=== PATIENT | female | born 1955 | race Caucasian/White ===

== ENCOUNTER → 2019-01-14 | Outpatient (CLI) | payer BC | LOC: MC.RAD 13:38 | DX: Z12.31 Encounter for screening mammogram for malignant neoplasm of breast (principal) ==

== ENCOUNTER → 2020-01-16 | Outpatient (CLI) | payer SELFPAY | LOC: MC.RAD 10:25 | DX: Z12.31 Encounter for screening mammogram for malignant neoplasm of breast (principal) ==

== ENCOUNTER → 2021-02-15 | Outpatient (CLI) | payer SELFPAY | LOC: MC.RAD 01-18 10:45 | DX: Z12.31 Encounter for screening mammogram for malignant neoplasm of breast (principal) ==

== ENCOUNTER 2022-02-09 18:45 | Observation (INO) | payer MEDICARE, BC ==
[~2022-02-09] VITALS: Ht 170.2 cm; Wt 63.0 kg
[2022-02-09 23:15] VITALS: BP 127/67; PULSE 75; TEMP 98.3
--- NOTE | 2022-02-09 23:15 | NUR ---
PATIENT ADMITED INTO ROOM 349 VIA EMS FROM [facility] WITH A SBO. A&O. PATIENT HAS HX OF ROUN-EN-Y. ABD IS FLAT, SOFT AND WITH HYPO BOWL SOUNDS NOTED. NO C/O OF PAIN OR NAUSEA FOR APPROX 2 HOURS NOW. PATIENT STATES PAIN AND N/V IS MUCH BETTER. DID PASS VERY LITTLE FLATUS TODAY. BM YESTERDAY, AFTER GUMMY STOOL SOFTNER, WAS VERY SMALL AND HARD. IV FLUIDS MAINTAINED BY EMS INFUSING VIA PUMP INTO PERIPHERAL IV. NPO FOR POSSIBLE SURGERY IN AM. NOTIFIED OF ARRIVAL, SEE ORDERS. HEAD TO TOE ASSESSMENT COMPLETE. ORIENTED TO ROOM. CALL LIGHT IN REACH. NO OTHER NEEDS AT THIS TIME. LIGHTS TURNED DOWN AND PATIENT SLEEPING.
[2022-02-09] MEDS ORDERED: TRIAM OI 0.1 454 TOP (23:34)
[2022-02-09] MEDS ORDERED: FERROUS FUMARA324 MG PO (23:35)
[2022-02-09] MEDS ORDERED: AMBIEN 5MG TABLE5 MG PO (23:35)
[2022-02-09] MEDS ORDERED: MULTI VITAMINS1 TAB PO (23:36)
[2022-02-09] MEDS ORDERED: CALCIUM 600MG+D1 TAB PO (23:36)
[2022-02-09] MEDS ORDERED: OSTEO-BI-FLEX 21 TAB PO (23:36)
[2022-02-09] MEDS ORDERED: [UNRECOGNIZED DRUG - OTHER] PO (23:57)
[2022-02-10 00:33] VITALS: BP 110/47; PULSE 76; TEMP 98.1
[2022-02-10 03:56] VITALS: BP 114/63; PULSE 77; TEMP 98
[2022-02-10 06:16] LABS: BASO # 0.1 K/mm3 (0.0-0.2); BASO % 0.7 % (0.0-2.0); EOS # 0.2 K/mm3 (0.0-0.7); EOS % 3.1 % (0.0-4.0); GRAN # 4.5 K/mm3 (1.4-6.5); GRAN % 66.3 % (42.2-75.2); HEMATOCRIT 39.1 % (37.0-47.0); HEMOGLOBIN 12.4 g/dl (12.5-16.0); LYMPH # 1.5 K/mm3 (1.2-3.4); LYMPH % 21.4 % (20.0-51.0); MEAN CELL VOLUME 87 fl (80.0-100.0); MEAN CORPUSCULAR HEMOGLOBIN 28 pg (27-31); MEAN CORPUSCULAR HGB CONC 32 g/dl (33.0-37.0); MONO # 0.6 K/mm3 (0.1-0.6); MONO % 8.4 % (1.7-9.3); PLATELET COUNT 269 K/mm3 (130-400); REDCELL DISTRIBUTION WIDTH-CV 15.1 % (11.5-14.5)
[2022-02-10 06:34] LABS: CALCIUM 8.3 mg/dL (8.4-10.2); CREATININE, serum 0.75 mg/dL (0.57-1.11); POTASSIUM 4.2 mmol/L (3.5-4.5)
--- NOTE | 2022-02-10 06:45 | NUR ---
Bedside shift report received, assumed care for day shift.
[2022-02-10 07:46] VITALS: BP 114/50; PULSE 77; TEMP 98.8
--- NOTE | 2022-02-10 08:10 | NUR ---
Assessment complete. A&Ox3. Denies pain/nausea/shortness of breath. VS stable. Voiding without difficulty. +Flatus/+BS. Tolerating clear liquid diet. States "I feel much better. Yesterday was rough and I feel normal today." Plan of care discussed for this shift to include meds/diet/INT to fluids if tolerating fluids. Verbalizes understanding/denies questions/concerns. Call light in reach. Will monitor.
--- NOTE | 2022-02-10 09:26 | NUR ---
Assisted with applying antibiotic ointment to poison ponce lesions on back. Covered with bandaids. Patient applied ointment to lesions on abdomen.
--- NOTE | 2022-02-10 09:30 | NUR ---
Initial visit; Patient thanked Highway Truck Driver for looking in on her, visiting and offering prayer and God's blessings. Patient offered a short prayer for Highway Truck Driver which was sincerely received.
--- NOTE | 2022-02-10 09:41 | NUR ---
balancing machine set up worker met with patient to discuss discharge plan. Patient currently lives at home alone in [place]. She is independent with her ADL's and does not utilize any DME to assist with mobility. Patient reports to no home oxygen needs. PCP is Dr. Richmond and she utilizes [facility] in [place] for medications with no cost difficulty. Patient is listed as "self pay" in the system but reports to having MCR and BCBS supplemental, but doesn't have her cards on her. This information is sent to Uriah in admissions to update the patients chart. Patient reports that she does not have a DPOA-HC established and is not interested in creating one at this time. She is not legally and has no children. Her only sibling is her sister Jody Falcon ([phone]). Patient is planning on returning home once medically ready. Discharge plan: Home
--- NOTE | 2022-02-10 10:22 | NUR ---
Called with c/o a headache. States she usually has some caffiene in the AM and hasnt yet today. Tylenol given per dr order. Also given tea per request. Will follow up.
--- NOTE | 2022-02-10 11:30 | NUR ---
Denies pain. States tea helped with headache. Still denies nausea and has tolerated clear liquids.
[2022-02-10 12:01] VITALS: BP 125/64; PULSE 73; TEMP 98.2
--- NOTE | 2022-02-10 13:03 | NUR ---
Discharge instructions given both verbal and handwritten. Discussed f/u appt, s/s to return to clinic/hospital and home medications. Denies questions/concerns. INT To left AC DCd at this time cath intact. Instructed to call when ride arrives to be escorted out with staff/wheelchair. Verbalizes understanding. Call light in reach. Will monitor.
--- NOTE | 2022-02-10 13:40 | NUR ---
Escorted off butler by DM Hubbard in stable condition
== END 2022-02-10 13:40 | disposition home or self-care (01) ==
LOC: SURG 18:45
PROVIDERS: ADMIT Surgery
DX: R10.9 Unspecified abdominal pain (principal); R11.2 Nausea with vomiting, unspecified; Z98.84 Bariatric surgery status
CPT/HCPCS: G0378; G0379; J7120

== ENCOUNTER → 2022-04-07 | Outpatient (CLI) | payer MEDICARE, BC ==
[~2022-04-07] MED LIST: AMBIEN 5MG TABLE5 MG PO; CALCIUM 600MG+D1 TAB PO; FERROUS FUMARA324 MG PO; MULTI VITAMINS1 TAB PO; OSTEO-BI-FLEX 21 TAB PO; TRIAM OI 0.1 454 TOP; [UNRECOGNIZED DRUG - OTHER] PO
== END ==
LOC: MC.RAD 10:58
DX: Z12.31 Encounter for screening mammogram for malignant neoplasm of breast (principal)

== ENCOUNTER → 2024-01-08 | Outpatient (CLI) | payer MEDICARE, BC | LOC: MC.RAD 11:15 | DX: Z12.31 Encounter for screening mammogram for malignant neoplasm of breast (principal) ==

== ENCOUNTER 2024-02-11 05:14 | Observation (INO) | payer MEDICARE, BC ==
[~2024-02-11] VITALS: Ht 170.2 cm; Wt 82.8 kg
[~2024-02-11 05:14] MED LIST changes: +AMBIEN 10MG10 MG PO; -AMBIEN 5MG TABLE5 MG PO
[2024-02-11] MEDS ORDERED: B-12 250 MCG PO (11:56)
[2024-02-11 12:16] VITALS: BP 129/80; PULSE 67; TEMP 97.5
[2024-02-11] MEDS ORDERED: LR 1,000 ML IV SCH (12:45)
[2024-02-11] MEDS ORDERED: Ondansetron 4 MG/2 ML VIAL IV PRN (12:45)
[2024-02-11] MEDS ORDERED: Morphine 4 MG/ML VIAL IV PRN (12:45)
[2024-02-11 13:07] VITALS: BP_SYST 129
--- NOTE | 2024-02-11 15:07 | NUR ---
Patient admitted to room 347. rounded. pleating supervisor called [employer] to get images clouded, facility did not send disk. Patient has tolerated clears without nausea. Minimal pain /. IVf as ordered. Scds Ble. Patient independent in room. Voiding without problems. Will monitor
[2024-02-11 16:20] VITALS: BP 109/71; PULSE 69; TEMP 98.1
[2024-02-11] MEDS ORDERED: Acetaminophen 325 MG TAB PO PRN (16:30)
[2024-02-11 18:15] VITALS: BP_SYST 109
--- NOTE | 2024-02-11 19:23 | NUR ---
Patient has done well today with minimal needs. Tolerated dinner and denies pain. [facility]
[2024-02-11 20:00] VITALS: BP 102/68; PULSE 90; TEMP 97.4
[2024-02-11 21:00] VITALS: BP_SYST 102
--- NOTE | 2024-02-11 21:30 | NUR ---
PT TOLERATING ORAL FLUIDS AND LOW FIBER DIET. CAPPED IVF. HAS IV SITE TO RT HAND. DENIES PAIN OR NAUSEA. INDEPENDENT IN ROOM.
[2024-02-12] VITALS (8 sets, daily range): BP systolic 99–130; BP diastolic 63–82; PULSE 70–74; TEMP 97.7–98.1
--- NOTE | 2024-02-12 03:45 | NUR ---
PT REPORTS HEADACHE, TYLENOL 650MG PO GIVEN.
--- NOTE | 2024-02-12 07:32 | NUR ---
pt is a&ox4 sitting up in bed. pt denies pain and n/v. bowel sounds are active in all 4 quadrants. pt is passing gas, has not had a BM since admission. pt is tolerating diet. INT to right hand is patent. pt denies needs at this time. call light in reach.
--- NOTE | 2024-02-12 11:12 | NUR ---
Int discontinued. discharge instructions given to pt, all questions answered. pt waiting for ride this afternoon before discharging.
--- NOTE | 2024-02-12 13:45 | NUR ---
pt escorted to personal vehicle by wheelchair.
--- NOTE | 2024-02-12 13:55 | NUR ---
D: Initial visit: Genetic Counselor stopped by room on rounds. Pt was resting and content. A: Pt was getting ready to be discharged. Pt has no needs right now. P: Genetic Counselor informed pt that if she needed anything before leaving to let her nurse know. Genetic Counselor will follow up as needed.
== END 2024-02-12 13:45 | disposition home or self-care (01) ==
LOC: SURG 05:14
PROVIDERS: ADMIT Surgery
DX: R14.0 Abdominal distension (gaseous) (principal); R11.0 Nausea
CPT/HCPCS: G0378; G0379; J7120